=== PATIENT | male | born 1985 | race Caucasian/White ===

== ENCOUNTER 2020-08-01 09:44 | Outpatient (CLI) | payer OTHER, SELFPAY ==
--- NOTE | ~2020-08-01 | MR_ITS ---
EXAMINATION: MR shoulder RT wo con DATE: 08/01/2020 10:49 INDICATION: Primary osteoarthritis, right shoulder. TECHNIQUE: Magnetic resonance imaging (MRI) of the right shoulder was performed without intravenous c ontrast. Sequences included axial PD-weighted FS FSE, coronal oblique PD-weighted FS FSE and T2-weigh mark FS FSE, and sagittal oblique T2-weighted FS FSE and T1-weighted FSE. COMPARISON: Right shoulder radiographs 02/26/2020 FINDINGS: Coracoacromial arch: The acromion undersurface is curved in morphology (type II). There is severe acromioclavicular joint osteoarthritis including inferiorly directed osteophytes. There is mild subacromial/subdeltoid bursit is. Rotator cuff: There is moderate supraspinatus and infraspinatus tendinopathy. No tear. Teres minor tendon is normal . Subscapularis tendon is normal. There is no asymmetric fatty atrophy of the rotator cuff muscle bel lies. Biceps tendon and glenoid labrum: Biceps tendon is in bicipital groove. Intra-articular biceps tendon is normal. There are tears of gle noid labrum at 10:00-11:00 and 7:00-8:00 with 12 x 5 mm paralabral cyst at 7:00-8:00. Fluid: There is no glenohumeral joint effusion. Bones/cartilage: There is partial-thickness cartilage loss of central and posterior glenoid. Humeral head cartilage is normal. IMPRESSION: 1. Moderate rotator cuff tendinopathy. No tear. 2. Severe acromioclavicular joint osteoarthritis. 3. Mild glenoid chondrosis. Tear of posterior glenoid labrum with paralabral cyst. 4. Mild subacromial/subdeltoid bursitis. Reviewed, dictated and finalized at location A. IMPRESSION: 1. Moderate rotator cuff tendinopathy. No tear. 2. Severe acromioclavicular joint osteoarthritis. 3. Mild glenoid chondrosis. Tear of posterior glenoid labrum with paralabral cy st. 4. Mild subacromial/subdeltoid bursitis.
== END 2020-08-01 09:45 ==
PROVIDERS: Visit Provider Orthopaedic Surgery
DX: M19.011 Primary osteoarthritis, right shoulder (principal); M75.51 Bursitis of right shoulder; M25.811 Other specified joint disorders, right shoulder
CPT/HCPCS: 73221

== ENCOUNTER → 2020-09-13 01:42 | Outpatient (CLI) | payer OTHER, SELFPAY ==
[2020-09-14 19:27] LABS: SARS-CoV-2 RNA PCR Negative
== END ==
PROVIDERS: Visit Provider Orthopaedic Surgery
DX: Z01.812 Encounter for preprocedural laboratory examination (principal); Z20.822 Contact with and (suspected) exposure to COVID-19
CPT/HCPCS: C9803; U0003; U0005

== ENCOUNTER 2020-09-16 00:42 | Day surgery (SDC) | payer OTHER, SELFPAY ==
[2020-09-09 09:36] VITALS: BMI 28.5
--- NOTE | 2020-09-15 10:30 | WPDANESEPPF ---
Anes - Initial Pre Proc Eval Procedure: Operation Date: 09/16/20 13:00 Proposed Procedures p Arthroscopic Right Distal Clavicle Excision, Proceed As Indicated - Joni Madera MD Date/Time: 09/15/20 10:30 Surgeon: Joni Madera MD Pre Op Diagnosis: Primary OA, Right shoulder Patient Data Age: 34 Gender: M Height: 1.83 m Weight: 95.25 kg Allergies Allergy/AdvReac Type Severity Reaction Status Date / Time No Known Allergies Allergy Verified 09/09/20 09:35 Home Medications Medication Instructions Recorded Confirmed Type No Home Medications 02/26/20 09/09/20 History Patient hx anesthesia problems: none Family hx anesthesia problems: none FOR[facility] Past Medical History Medical History (Updated 08/31/20 @ 08:26 by Lexie Tatum MA) History of hand fracture Surgical History Surgical History (Updated 08/31/20 @ 08:26 by Lexie Tatum MA) History of appendectomy Social History Social History (Updated 08/31/20 @ 08:24 by Lexie Tatum MA) Smoking status: Never smoker Alcohol intake: current Alcohol use details: 3/MONTH Substance use: never Substance use type: does not use Living arrangements: with roommate(s) Spiritual care concerns: No Anes - Eval Final PreProcedure Day of Procedure 09/15/20 10:30 Patient weight: overweight Heart: regular rate and rhythm Lungs: clear to auscultation and normal air movement Airway: Mallampati scale class II Neurological: alert and oriented Last oral intake: >/= 8 hours ASA classification: II Emergent: no Anesthetic plan: proceed Anesthesia type and monitoring: general ETT and standard monitoring Informed Consent: The patient's anesthetic plan and its attendant risks and benefits were discussed with the patient/family/POA. Questions were solicited and answers provided to the satisfaction of the patient/family/POA.
[2020-09-16] VITALS (10 sets, daily range): BP systolic 133–154; BP diastolic 79–90; PULSE 58–85; RESP 12–16; TEMP 36.2; O2SAT 97–100
--- NOTE | 2020-09-16 09:22 | WPDHPUPDATE1 ---
History and Physical Update Update Date/Time: 09/16/20 09:22 History and Physical has been reviewed, including an updated exam of the patient. There are NO changes in the patient's condition. Risks, benefits, and alternatives have been discussed and questions answered. Patient agrees to proceed with procedure.
[2020-09-16] MEDS: ACETAMINOPHEN 500 MG TABLET 1000 MG PO (12:05)
[2020-09-16] MEDS: KETOROLAC 15 MG/ML VIAL (*BKC) IV PUSH (12:06)
[2020-09-16] MEDS: LACTATED RINGERS 1,000 ML 30 ML IV CONT ×2 (12:08→15:48)
--- NOTE | 2020-09-16 13:17 | SUR.PREOP ---
patient updated on delay and surgery start time.
[2020-09-16] MEDS: ceFAZolin 2 GM/D5W 50 ML 2 GM/50 ML BAG IVPB (13:39)
[2020-09-16] MEDS: BUPIVACAINE/EPINEPHRINE 0.5% 10 ML VIAL 30 ML INFILTRATE (14:29)
--- NOTE | 2020-09-16 16:28 | P.OP_ITS ---
Procedure Note - Detailed Date of procedure: 09/16/20 Pre-op diagnosis: Primary OA, Right shoulder 1. Arthrosis of the AC joint 2. Posterior labral tear Post-op diagnosis: other ( 1. Arthrosis of the AC joint 2. Posterior labral tear) Procedure performed: 1. Arthroscopic posterior labral repair. 2. Arthroscopic distal clavicle excision with subacromial decompression. Description of procedure: The glenohumeral joint did show a small but significant splitting in the posterior labrum at the 9 o'clock position. This was consistent with the MRI findings of the tear and a paralabral cyst. The area was repaired with a single 1. PDS suture passed with a spinal needle through soft tissue. The remaining glenohumeral joint appeared entirely normal. The rotator cuff was pristine. The distal clavicle arthritis arthrosis was treated with distal clavicle excision performed arthroscopically with a modest subacromial decompression. Anesthesia: GETA and regional Surgeon: Joni Madera MD Polishing Wheel Repairer: Jenna Bradley PA-C Estimated blood loss (mL): 10 Complications: None Condition: stable Disposition: PACU Findings: Physician library serials assistant, Jenna Bradley PA-C, required for surgery; including patient positioning, draping, arthroscopic camera operation, maintaining instrument position, suture retrieval, wound closure, and dressing and sling placement. Operative details: Patient was given an interscalene block in the holding area. Preoperative antibiotics were given. The patient was brought to the operating room. Careful positioning in the lateral decubitus position was accomplished. The head neck were carefully positioned. An axillary roll was placed. The shoulder was examined. The shoulder was prepped and draped in the usual sterile fashion. Standard posterior and anterior arthroscopic portals were established. The shoulder was inspected. The posterior labrum showed the tear consistent with the MRI. The split was carefully debrided and rasped slightly. The remaining tissue was quite robust and a soft tissue repair was elected. 1. PDS was passed through with an 18 gauge spinal needle. This was tied arthroscopically with the knot on the capsular side of the tissue. Attention was turned to the subacromial space. A complete bursectomy was performed. An accessory lateral portal was created. The acromion and distal clavicle were clearly visualized. Acromioplasty and distal clavicle excision were performed utilizing views from both lateral and posterior. The 70 degree scope was used for complete viewing of the distal clavicle. The superior acromioclavicular ligaments were preserved. Loose bone fragments were carefully irrigated from the joint. The arthroscopic instruments were removed. The wounds were closed with interrupted 3-0 Monocryl suture followed by Steri-Strips. A sterile dressing was applied with a sling. The patient was extubated and brought to the recovery room in stable condition. There were no complications.
--- NOTE | 2020-09-16 16:47 | SUR.PHASEII ---
[id number]- Call to Asim Cartagena CRNA to request pain pill for patient. Patient complaining of pain to right shoulder 4/10 on numeric scale and describing it at soreness at this time. Obtained orders for oxycodone 5MG IR once PO.
[2020-09-16] MEDS: oxyCODONE HCL (*CRX) 5 MG TAB IR PO (16:52)
== END 2020-09-16 17:29 | disposition home or self-care (01) ==
PROVIDERS: Visit Provider Orthopaedic Surgery
PROC: (CPT 29805; principal; 2020-09-16 13:00)
DX: M19.011 Primary osteoarthritis, right shoulder (principal); M75.81 Other shoulder lesions, right shoulder
CPT/HCPCS: 29824; 29807; A4565; A9270; C9803; J0690; J1170; J1885; J2250; J2405; J2704; J3010; J7120; U0003; U0005